=== PATIENT | female | born 1955 | race Caucasian/White ===

== ENCOUNTER 2020-09-02 07:54 | Outpatient (CLI) | payer MEDICARE, SELFPAY ==
--- NOTE | 2020-09-02 08:48 | ECG_ITS ---
Measurements Intervals [place] Rate: 68 P: 40 IN: 161 QRS: 14 QRSD: 98 T: 50 QT: 379 QTc: 404 Interpretive Statements SINUS RHYTHM BASELINE ARTIFACT- I, III, AVR, AVL, AVF NORMAL ECG Electronically Signed On 09-02-2020 9:31:28 [employer]NAGER [employer] by Rafi Mendenhall D.O.
[2020-09-02 09:10] LABS: Basophils Absolute Auto 0.1 K/mm3 (0.0-0.1); Basophils Percent Auto 0.5 % (0.2-1.2); Eosinophils Absolute Auto 0.2 K/mm3 (0-0.3); Eosinophils Percent Auto 1.3 % (0-4.4); Hematocrit 46.2 % (37.0-47.0); Hemoglobin 15.5 g/dL (12.0-15.0); Immature Granulocyte Absolute 0.12 K/mm3 (0.00-0.031); Immature Granulocyte Percent A 0.9 % (0-0.5); Lymphocytes Absolute Auto 3.87 K/mm3 (0.9-3.2); Lymphocytes Percent Auto 30.6 % (18.3-44.2); Mean Corpuscular HGB Conc 33.5 g/dl (32-36); Mean Corpuscular Hemoglobin 31.6 pg (26-34); Mean Corpuscular Volume 94.1 fl (80-100); Mean Platelet Volume 9.4 fl (7.4-10.4); Monocytes Absolute Auto 0.8 K/mm3 (0.1-0.6); Monocytes Percent Auto 6.3 % (2.6-8.5); Neutrophils Absolute Auto 7.6 K/mm3 (1.3-6.7); Neutrophils Percent Auto 60.4 % (45.5-73.1); Platelet Count Result 250 k/mm3 (150-375); Red Blood Count 4.91 M/mm3 (4.2-5.4); Red Cell Distribution Width 13.2 % (11.5-14.5); White Blood Count 12.6 K/mm3 (4.5-10.0)
[2020-09-02 09:23] LABS: INR 0.9; Prothrombin Time 12.5 Seconds (11.1-14.7)
[2020-09-02 09:24] LABS: Alanine Aminotransferase 15 U/L (4-35); Alkaline Phosphatase 101 U/L (38-126); Anion Gap 5 mmol/L (8-16); Aspartate Amino Transferase 23 U/L (14-36); Bilirubin,Total 0.9 mg/dL (0.2-1.3); Blood Urea Nitrogen 14 mg/dL (7-17); Calcium 9.3 mg/dL (8.4-10.2); Carbon Dioxide 29 mmol/L (22-30); Chloride 106 mmol/L (98-107); Estimated Glomerular Filt Rate > 60; Glucose 101 mg/dL (65-105); Potassium 4.1 mmol/L (3.4-5.0); Sodium 140 mmol/L (137-145)
== END 2020-09-02 07:55 | disposition home or self-care (01) ==
PROVIDERS: PCP Internal Medicine; Visit Provider Urology
DX: N81.10 Cystocele, unspecified (principal); Z01.818 Encounter for other preprocedural examination; I10 Essential (primary) hypertension
CPT/HCPCS: 36415; 80053; 85025; 85610; 85730; 86850; 86900; 86901; 87086; 87088; 93005

== ENCOUNTER → 2020-09-06 00:21 | Outpatient (CLI) | payer MEDICARE, SELFPAY ==
[2020-09-06 18:19] LABS: SARS-CoV-2 RNA PCR Negative
== END ==
PROVIDERS: PCP Internal Medicine; Visit Provider Urology
DX: Z01.812 Encounter for preprocedural laboratory examination (principal); Z20.822 Contact with and (suspected) exposure to COVID-19
CPT/HCPCS: C9803; U0003; U0005

== ENCOUNTER 2020-09-09 00:18 | Day surgery (SDC) | payer MEDICARE, SELFPAY ==
[2020-09-02 08:07] VITALS: BMI 31.6
[2020-09-02 08:50] VITALS: BP 143/76; PULSE 80; RESP 16; TEMP 36.8; O2SAT 96
--- NOTE | 2020-09-06 08:42 | PM.IMHP ---
H&P: HPI History of Present Illness Date/Time: 09/06/20 08:42 Chief Complaint: Pelvic organ prolapse, stress incontinence Narrative: Winsome Rader is a 65 year old female with pelvic organ prolapse and stress incontinence Review of Systems Review of Systems: All systems reviewed & are unremarkable except as noted in HPI and below PMFSH Past Medical History Medical History (Updated 09/06/20 @ 08:43 by Demarco Sherman MD) COPD (chronic obstructive pulmonary disease) Fibromyalgia Hypertension Neuropathy Surgical History Surgical History (Updated 09/06/20 @ 08:15 by Rogerio Molina DO) History of hysterectomy History of tubal ligation Social History Social History Smoking packs per day: 1 Smoking cigarettes per day: 20.0 Years smoked: 46 Smoking pack-years: 46.00 Smoking status: Current every day smoker Tobacco type: cigarettes Alcohol intake: current Drinks per week: 10 Substance use: current Substance use type: marijuana Last use: 09/01/20 Spiritual care concerns: No Meds Home Medications and Allergies Home Medications Medication Instructions Recorded Confirmed Type albuterol sulfate 2.5 mg INHALATION PRN PRN 09/02/20 09/02/20 History albuterol sulfate [ProAir HFA] 2 puff INHALATION PRN PRN 09/02/20 09/02/20 History amlodipine 5 mg PO HS 09/02/20 09/02/20 History cholecalciferol (vitamin D3) 25 mcg PO DAILY 09/02/20 09/02/20 History gabapentin 600 mg PO BID 09/02/20 09/02/20 History geriatric multivitamin-min 1 tablet PO DAILY 09/02/20 09/02/20 History [One-A-Day 50 Plus] loratadine 10 mg PO HS 09/02/20 09/02/20 History montelukast 10 mg PO HS 09/02/20 09/02/20 History Allergies Allergy/AdvReac Type Severity Reaction Status Date / Time Sulfa (Sulfonamide Allergy Unknown Difficulty Verified 09/02/20 08:10 Antibiotics) Breathing,RASH SULFAMERAZINE (Generic Allergy Difficulty Uncoded 09/02/20 08:10 Allergy) Breathing,RASH Exam Const: General: cooperative and healthy appearing HENMT: Head: normal to inspection Face and sinus: normal facial exam Eyes: General: appearance normal, both eyes and all related structures Resp: Effort & Inspection: normal respiratory effort and able to speak in complete sentences : Bimanual exam- vagina & uterus: uterus absent (Apical descent at +3) Skin: General skin exam: normal color Neuro: General: oriented to person, oriented to place and oriented to time Extrem: General: normal to inspection Assessment and Plan Assessment and plan (1) Prolapse of vaginal vault after hysterectomy: Code(s): N99.3 - Prolapse of vaginal vault after hysterectomy Status: Acute Assessment and Plan: Robotic sacral colpopexy (2) FELIPE (stress urinary incontinence, female): Code(s): N39.3 - Stress incontinence (female) (male) Status: Acute Assessment and Plan: Urethral sling
[2020-09-09] VITALS (11 sets, daily range): BP systolic 98–175; BP diastolic 49–87; PULSE 64–90; RESP 14–20; TEMP 36.2–36.8; O2SAT 92–100
[2020-09-09] MEDS: LACTATED RINGERS 1,000 ML 30 ML IV CONT ×2 (06:57→10:23)
--- NOTE | 2020-09-09 06:59 | WPDANESEPPF ---
Anes - Initial Pre Proc Eval Procedure: Operation Date: 09/09/20 07:30 Proposed Procedures p Robotic Sacrocolpopexy, Possible Urethral Sling - Demarco Sherman MD Date/Time: 09/09/20 06:59 Surgeon: Demarco Sherman MD Pre Op Diagnosis: Vaginal Vault Prolapse Patient Data Age: 65 Gender: F Height: 1.63 m Weight: 82 kg Last Vital Signs Temp 36.8 C 09/02/20 08:50 Pulse 80 09/02/20 08:50 Resp 16 09/02/20 08:50 BP 143/76 H 09/02/20 08:50 Pulse Ox 96 09/02/20 08:50 Allergies Allergy/AdvReac Type Severity Reaction Status Date / Time Sulfa (Sulfonamide Allergy Severe Difficulty Verified 09/09/20 06:08 Antibiotics) Breathing,RASH SULFAMERAZINE (Generic Allergy Severe Difficulty Uncoded 09/09/20 06:08 Allergy) Breathing,RASH Home Medications Medication Instructions Recorded Confirmed Type albuterol sulfate 2.5 mg INHALATION PRN PRN 09/02/20 09/02/20 History albuterol sulfate [ProAir HFA] 2 puff INHALATION PRN PRN 09/02/20 09/09/20 History amlodipine 5 mg PO HS 09/02/20 09/09/20 History cholecalciferol (vitamin D3) 25 mcg PO DAILY 09/02/20 09/09/20 History gabapentin 600 mg PO BID 09/02/20 09/09/20 History geriatric multivitamin-min 1 tablet PO DAILY 09/02/20 09/09/20 History [One-A-Day 50 Plus] loratadine 10 mg PO HS 09/02/20 09/09/20 History montelukast 10 mg PO HS 09/02/20 09/09/20 History Patient hx anesthesia problems: none Family hx anesthesia problems: none PMFSH Past Medical History Medical History (Updated 09/06/20 @ 08:43 by Demarco Sherman MD) COPD (chronic obstructive pulmonary disease) Fibromyalgia Hypertension Neuropathy Surgical History Surgical History (Updated 09/06/20 @ 08:15 by Rogerio Molina DO) History of hysterectomy History of tubal ligation Social History Social History Smoking packs per day: 1 Smoking cigarettes per day: 20.0 Years smoked: 46 Smoking pack-years: 46.00 Smoking status: Current every day smoker Tobacco type: cigarettes Alcohol intake: current Drinks per week: 10 Substance use: current Substance use type: marijuana Last use: 09/01/20 Living arrangements: with family Spiritual care concerns: No Anes - Eval Final PreProcedure Day of Procedure 09/09/20 06:59 Patient weight: obese Heart: regular rate and rhythm Lungs: clear to auscultation and normal air movement Airway: Mallampati scale class III Neurological: alert and oriented Last oral intake: >/= 8 hours ASA classification: III Emergent: no Anesthetic plan: proceed Anesthesia type and monitoring: general ETT and standard monitoring Informed Consent: The patient's anesthetic plan and its attendant risks and benefits were discussed with the patient/family/POA. Questions were solicited and answers provided to the satisfaction of the patient/family/POA.
--- NOTE | 2020-09-09 07:23 | WPDHPUPDATE1 ---
History and Physical Update Update Date/Time: 09/09/20 07:23 History and Physical has been reviewed, including an updated exam of the patient. There are NO changes in the patient's condition. Risks, benefits, and alternatives have been discussed and questions answered. Patient agrees to proceed with procedure.
[2020-09-09] MEDS: ceFAZolin 2 GM/D5W 50 ML 2 GM/50 ML BAG IVPB (07:36)
[2020-09-09] MEDS: BUPIVACAINE/EPINEPHRINE 0.25% 50 ML VIAL 40 ML INFILTRATE (08:41)
--- NOTE | 2020-09-09 09:48 | SUR.OPER ---
Urethral Sling start 0945
--- NOTE | 2020-09-09 09:54 | SUR.OPER ---
MESH UPSYLON EXP 2023-02-22, LOT [id number] MESH DESARA BLUE SS LOT [id number], EXP 03/06/2023
--- NOTE | 2020-09-09 10:08 | PM.PROC ---
Procedure Note - Detailed Date of procedure: 09/09/20 Pre-op diagnosis: Vaginal Vault Prolapse Post hysterectomy vaginal vault prolapse Stress urinary incontinence Post-op diagnosis: same Procedure performed: Robotic assisted laparoscopic sacral colpopexy Renea urethral sling Description of procedure: She understands the risks of bleeding, infection, recurrence of prolapse, diskitis, postoperative voiding dysfunction including incontinence and retention, dyspareunia, persistent or recurrent stress incontinence, vaginal mesh extrusion, urinary tract mesh erosion, bowel injury or obstruction, damage to surrounding organs, medical related complications. Agrees to proceed She was correctly identified and informed consent was obtained. She is brought to the operating room. She was given general anesthesia. She was placed in the low lithotomy position. All pressure points were padded. She was given appropriate perioperative antibiotics. A time-out was performed. I anesthetized the skin 3 fingerbreadths cephalad to the umbilicus. I incised the skin. I located the fascia. I entered the fascia sharply. I placed Vicryl sutures for later fascial closure. I placed a midline trocar. Under direct vision 2 additional trocars were placed in the right and left upper quadrant. She was placed in steep Trendelenburg. The robot was docked. I then sat at the console. There were some adhesions of the colon into the cul-de-sac. These were all taken down sharply. This allowed the bowel to get out of the pelvis. With the Sizer in the vagina I created a plane on the anterior and posterior vaginal wall. I took great care not to injure the vagina bladder or rectum. I introduced the mesh into the abdomen. I sewed the anterior leaflet of mesh on the anterior vaginal wall and posterior leaflet of mesh on the posterior vaginal wall with several sutures with 2 Gortex taking great care not to go through and through. I then reflected the colon laterally. I opened up the peritoneum over the sacral promontory. I carried this incision into the cul-de-sac. I located the ureter and kept lateral. I freed up the edges of the peritoneum. I located the anterior longitudinal ligament of the sacrum. I then tensioned my mesh appropriately. I did a vaginal exam to ensure prolapse reduction without undue tension. I then sewed the proximal leaflet of mesh onto the ligament with 3 sutures of 2 0 [place]. I used a 2 0 Monocryl to completely and meticulously retroperitonealized all mesh. I allowed the colon to go back into its normal anatomic location no sign of any impingement or stricturing. The abdomen was exited. Fascial sutures were closed. Skin was closed. Glue was applied. She was repositioned and prepped for urethral sling. I marked out the thigh incisions. I anesthetized the skin and made those incisions. I anesthetized the anterior vaginal wall over the mid urethra. I made a 1 cm incision. I dissected out laterally taking great care not to injure the urethra or the vaginal wall. I passed the helical trocars. First on the left and then on the right. This was done from the thigh incision towards the vaginal incision. The sling was connected to the trocars and brought out through the thigh incision. I tensioned the sling appropriately. I cut and removed the plastic sheaths. I then closed the incision with 2 0 Vicryl. Cystoscopy showed no surgical artifact in the bladder. No surgical artifact in the urethra. Ureteral orifices were seen to excrete clear yellow urine. The Guzman catheter was replaced. She was awakened and transferred to the PACU in stable condition. Implants: Y mesh Anesthesia: GETA Surgeon: Demarco Sherman MD Drains: Yes (Guzman catheter) Packing: No Pathology: none sent Complications: No immediate complications Condition: stable Disposition: PACU
--- NOTE | 2020-09-09 11:39 | OBPPTRN ---
Patient transferred to post room #289 via bed. Oriented to unit, room, information board, rooming in, admission packet and security measures. Patient verbalizes understanding.
[2020-09-09] MEDS: KCL 20 MEQ/D5/0.45% SOD CHL 1,000 ML 100 ML IV CONT (12:10)
[2020-09-09] MEDS: KETOROLAC 15 MG/ML VIAL (*BKC) IV PUSH ×2 (14:54→23:30)
[2020-09-09] MEDS: GABAPENTIN 300 MG CAPSULE 600 MG PO (16:59)
[2020-09-09] MEDS: LORATADINE 10 MG TABLET PO (21:00)
[2020-09-09] MEDS: amLODIPine BESYLATE 5 MG TABLET PO (21:00)
[2020-09-09] MEDS: MONTELUKAST SODIUM 10 MG TABLET PO (21:00)
[2020-09-10 05:10] VITALS: BP 95/54; PULSE 75; RESP 16; TEMP 36.7
[2020-09-10 07:45] VITALS: BP 132/53; PULSE 60; RESP 16; TEMP 36.4; O2SAT 96
[2020-09-10] MEDS: DOCUSATE SODIUM 100 MG CAPSULE PO (08:11)
[2020-09-10] MEDS: HYDROcodone/acetaminophen (*CRX) 5-325 MG TABLET 1 TAB PO (08:12)
[2020-09-10] MEDS: GABAPENTIN 300 MG CAPSULE 600 MG PO (08:12)
[2020-09-10] MEDS: ENOXAPARIN 30 MG/0.3 ML SYRINGE SUB-Q (08:13)
--- NOTE | 2020-09-10 08:39 | WPDANESPN ---
Anes - Prog Note Post-Op Date/Time: 09/10/20 08:39 Cardiovascular status: normal Respiratory status: normal Airway patency: baseline Mental status: baseline Post-Op hydration status: normal Vital Signs: Last Vital Signs Temp 36.7 C 09/10/20 05:10 Pulse 75 09/10/20 05:10 Resp 16 09/10/20 05:10 BP 95/54 L 09/10/20 05:10 Pulse Ox 93 09/09/20 16:24 Pain Score (VAS): 2 I/O: Intake & Output 09/09/20 09/10/20 09/10/20 23:59 07:59 15:59 Intake Total 1360 490 Output Total 1350 1200 Balance 10 -710 Post-procedural complaints: none Patient Feedback: Patient satisfied with anesthetic care.
== END 2020-09-10 11:24 | disposition home or self-care (01) ==
LOC: ANHSURGERY 10:13 → ANHOB2 11:47
PROVIDERS: PCP Internal Medicine; Visit Provider Urology
PROC: (CPT 57425; principal; 2020-09-09 07:30)
DX: N99.3 Prolapse of vaginal vault after hysterectomy (principal); N39.3 Stress incontinence (female) (male); I10 Essential (primary) hypertension; J44.9 Chronic obstructive pulmonary disease, unspecified; G62.9 Polyneuropathy, unspecified; M79.7 Fibromyalgia; F17.210 Nicotine dependence, cigarettes, uncomplicated; E66.9 Obesity, unspecified; Z68.31 Body mass index [BMI] 31.0-31.9, adult
CPT/HCPCS: 57425; 57288; 36415; 80053; 85025; 85610; 85730; 86850; 86900; 86901; 87086; 87088; 93005; 99199; A9270; C1771; C1781; C9803; J0330; J0690; J1100; J1650; J1885; J2250; J2405; J2710; J3010; J3480; J7030; J7120; U0003; U0005

== ENCOUNTER 2023-06-14 11:23 | Emergency (ER) | payer MEDICARE, SELFPAY ==
[2023-06-14 11:32] VITALS: BP 142/81; PULSE 94; RESP 20; TEMP 36.8; O2SAT 96
--- NOTE | 2023-06-14 12:06 | ED.EYEPROB ---
HPI - Eye Problem General Chief complaint: Eye Problems Stated complaint: Sinus/Eye Problem Time Seen by Provider: 06/14/23 12:06 Source: patient Mode of arrival: ambulatory Limitations: no limitations History of Present Illness HPI Narrative: 68-year-old female presents with complaint of left ear pain for the past 2-3 days. Patient reports history of seasonal allergies, takes allergy medication daily. Reports always has a runny nose. Also reports redness, yellow discharge from left eye with irritation itching. No pain. No vision changes. concern for bacterial conjunctivitis. All systems reviewed and negative except as noted above. Related Data Home Medications Medication Instructions Recorded Confirmed albuterol sulfate 2.5 mg/3 mL 2.5 mg inhalation PRN PRN SOB 09/02/20 09/02/20 (0.083 %) solution for nebulization albuterol sulfate 90 mcg/actuation 2 puff inhalation PRN PRN SOB 09/02/20 09/09/20 aerosol inhaler (ProAir HFA) amlodipine 5 mg tablet 5 mg PO HS 09/02/20 09/09/20 cholecalciferol (vitamin D3) 25 25 mcg PO DAILY 09/02/20 09/09/20 mcg (1,000 unit) tablet gabapentin 600 mg tablet 600 mg PO BID 09/02/20 06/14/23 geriatric multivitamin-min 1 tablet PO DAILY 09/02/20 06/14/23 loratadine 10 mg tablet 10 mg PO HS 09/02/20 06/14/23 montelukast 10 mg tablet 10 mg PO HS 09/02/20 06/14/23 Allergies Allergy/AdvReac Type Severity Reaction Status Date / Time Sulfa (Sulfonamide Allergy Severe Difficulty Verified 06/14/23 11:51 Antibiotics) Breathing,RASH SULFAMERAZINE (Generic Allergy Severe Difficulty Uncoded 06/14/23 11:51 Allergy) Breathing,RASH Review of Systems Review of Systems: CONSTITUTIONAL: Denies fever, chills, or sweats. EYES: Denies visual changes reports left eye redness, yellow discharge. ENT: Reports rhinorrhea, congestion, left ear pain. Denies sore throat CARDIOVASCULAR: Denies chest pain, palpitations, or edema. RESPIRATORY: Denies cough or dyspnea. GASTROINTESTINAL: Denies abdominal pain, nausea, vomiting, or diarrhea. GENITOURINARY: Denies dysuria or hematuria. SKIN: Denies rash or itching. MUSCULOSKELETAL: Denies back pain, joint pain, or myalgia. NEUROLOGIC: Denies headache, numbness, or weakness. PSYCHIATRIC: Denies anxiety or depression. All other systems reviewed are negative, except as documented in HPI. [facility] Past Medical History Medical History (Updated 06/14/23 @ 12:20 by Faby Lazaro NP) COPD (chronic obstructive pulmonary disease) Fibromyalgia Hypertension Neuropathy Surgical History Surgical History (Updated 09/06/20 @ 08:15 by Rogerio Molina DO) History of hysterectomy History of tubal ligation Social History Social History Smoking packs per day: 1 Smoking cigarettes per day: 20.0 Years smoked: 46 Smoking pack-years: 46.00 Smoking status: Current every day smoker Tobacco type: cigarettes Alcohol intake: current Drinks per week: 10 Substance use: current Substance use type: marijuana Last use: 09/01/20 Living arrangements: with family Gender identity (if verbalized by the patient): Female Spiritual care concerns: No Comments At time of signature, agree with nursing past medical, surgical, social and family history. There is no relevant family history pertinent to the presenting complaint. Exam Narrative: GENERAL: This is a well-nourished, well-developed patient, in no apparent distress. HEAD: normocephalic, atraumatic. EYES: PERRL. Sclera and conjunctiva erythematous left eye. Redness and swelling to left upper eyelid without tenderness, warmth. No stye noted. Vision is grossly intact. EARS: External ears normal, auditory canals clear and without drainage, left TM is erythematous with purulence, no perforation. Hearing grossly intact. NOSE: External nose normal with clear nasal drainage, nares without redness THROAT: Mucous membranes moist, posterior pharynx clear. NECK: Neck supple, non-tende
== END 2023-06-14 12:25 | disposition home or self-care (01) ==
PROVIDERS: Emergency Provider Nurse Practitioner Family; PCP Internal Medicine
DX: H10.32 Unspecified acute conjunctivitis, left eye (principal); H65.02 Acute serous otitis media, left ear; J44.9 Chronic obstructive pulmonary disease, unspecified; I10 Essential (primary) hypertension; F17.210 Nicotine dependence, cigarettes, uncomplicated; Z79.899 Other long term (current) drug therapy
CPT/HCPCS: 99213; G0463